=== PATIENT | female | born 1955 | race Caucasian/White ===

== ENCOUNTER 2017-06-04 19:52 | Emergency (ER) | payer SELFPAY ==
[2017-06-04 19:54] VITALS: BP 150/73; PULSE 75; RESP 16; TEMP 98.1; O2SAT 100
[2017-06-04 20:45] VITALS: RESP 16; O2SAT 99
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
[2017-06-04] MEDS ORDERED: ONDANSETRON HCL 4 MG/2 ML VIAL IV PUSH ONE ×2 (21:00→21:45)
[2017-06-04] MEDS ORDERED: MORPHINE SULFATE 4 MG/ML INJ IV PUSH ONE (21:00)
[2017-06-04 21:03] LABS: AUTOMATED NEUTROPHIL # 2.5 TH/MM3 (1.8-7.7); BASOPHIL % 0.4 % (0.0-2.0); EOSINOPHIL # 0.3 TH/MM3 (0-0.4); EOSINOPHIL % 4.8 % (0.0-4.0); HEMATOCRIT 41.6 % (35.0-46.0); HEMO FLAGS DIFF FINAL; LYMPH % 46.1 % (9.0-44.0); LYMPHOCYTE # 2.7 TH/MM3 (1.0-4.8); MEAN CELL VOLUME 92.9 FL (80.0-100.0); MEAN CORPUSCULAR HEMOGLOBIN 31.4 PG (27.0-34.0); MEAN CORPUSCULAR HGB CONC 33.8 % (32.0-36.0); MONO % 6.3 % (0.0-8.0); NEUT % 42.4 % (16.0-70.0); PLATELET COUNT 179 TH/MM3 (150-450); RED BLOOD COUNT 4.48 MIL/MM3 (4.00-5.30); RED CELL DISTRIBUTION WIDTH 13.2 % (11.6-17.2); WHITE BLOOD COUNT 5.9 TH/MM3 (4.0-11.0)
[2017-06-04 21:05] LABS: APTT (PATIENT) 25.9 SEC (24.3-30.1)
[2017-06-04 21:14] LABS: BICARBONATE 26.5 MEQ/L (21.0-32.0); POTASSIUM 4.3 MEQ/L (3.5-5.1)
[2017-06-04] MEDS ORDERED: LORazepam 1 MG TAB PO ONE (22:00)
[2017-06-04] MEDS ORDERED: LORazepam 2 MG/ML VIAL ONE (22:05)
--- NOTE | 2017-06-04 22:06 | RADRPT ---
EXAM DATE/TIME: 06/04/2017 21:14 [facility] COMPARISON: No previous studies available for comparison. INDICATIONS : Radiculopathy. MEDICAL HISTORY : Carcinoma, colon. SURGICAL HISTORY : Cholecystectomy. Hysterectomy. ENCOUNTER: Initial ACUITY: 1 month PAIN SCORE: 7/10 LOCATION: Bilateral lower back region. TECHNIQUE: Multiplanar multisequence MRI of the lumbar spine was performed without contrast. FINDINGS: The most caudal appearing lumbar vertebra is numbered as L5. VERTEBRAE: Homogeneous signal. Normal alignment. CONUS: Normal level and configuration. T12-L1: The thecal sac has a normal diameter. No evidence of disc bulge or protrusion. The neural foramina are patent bilaterally. L1-L2: The thecal sac has a normal diameter. No evidence of disc bulge or protrusion. The neural foramina are patent bilaterally. L2-L3: The thecal sac has a normal diameter. No evidence of disc bulge or protrusion. The neural foramina are patent bilaterally. L3-L4: Mild disc bulge without stenosis. L4-L5: Left-sided lateral disc protrusion and osteophytic ridging with left foraminal stenosis and impingeme nt on the left L4 nerve root. L5-S1: Broad-based disc bulge without stenosis. CONCLUSION: 1. At L4-5 on the left side there is a lateral disc protrusion and osteophytic ridging resulting in a left-sided foraminal stenosis and impingement on the left L4 nerve root. 2. Broad-based disc bulge at L3-4 and L5-S1 without significant stenosis. Kiel Downs MD on June 04, 2017 at 22:00 Board Certified Radiologist. This report was verified electronically.
--- NOTE | 2017-06-04 22:09 | RADRPT ---
EXAM DATE/TIME: 06/04/2017 21:49 [facility] COMPARISON: No previous studies available for comparison. INDICATIONS : Chest pain starting today MEDICAL HISTORY : None. SURGICAL HISTORY : None. ENCOUNTER: Initial ACUITY: 1 day PAIN SCORE: 10/10 LOCATION: Bilateral chest FINDINGS: A single view of the chest demonstrates the lungs to be symmetrically aerated without evidence of mas s, infiltrate or effusion. The cardiomediastinal contours are unremarkable. Osseous structures are intact. CONCLUSION: No acute disease. Kiel Downs MD on June 04, 2017 at 22:06 Board Certified Radiologist. This report was verified electronically.
--- NOTE | 2017-06-04 23:00 | RADRPT ---
EXAM DATE/TIME: 06/04/2017 22:50 [facility] COMPARISON: No previous studies available for comparison. INDICATIONS : Cephalgia. RADIATION DOSE: 31.89 CTDIvol (mGy) MEDICAL HISTORY : Cerebrovascular disease. Dementia. Carcinoma, colon. SURGICAL HISTORY : None. ENCOUNTER: Initial ACUITY: 3 months PAIN SCALE: 10/10 LOCATION: Bilateral cranial TECHNIQUE: Multiple contiguous axial images were obtained of the head. Using automated exposure control and adj ustment of the mA and/or kV according to patient size, radiation dose was kept as low as reasonably a chievable to obtain optimal diagnostic quality images. DICOM format image data is available electro nically for review and comparison. FINDINGS: CEREBRUM: The ventricles are normal for age. No evidence of midline shift, mass lesion, hemorrhage or acute in farction. No extra-axial fluid collections are seen. POSTERIOR FOSSA: The cerebellum and brainstem are intact. The 4th ventricle is midline. The cerebellopontine angle i s unremarkable. EXTRACRANIAL: The visualized portion of the orbits is intact. SKULL: The calvaria is intact. No evidence of skull fracture. CONCLUSION: 1. No acute intracranial abnormalities. Kiel Downs MD on June 04, 2017 at 22:56 Board Certified Radiologist. This report was verified electronically.
[2017-06-04 23:18] LABS: CREATINE KINASE 63 U/L (26-192)
[2017-06-05] MEDS ORDERED: FAMO1TAB37 PO (03:13)
[2017-06-05] MEDS ORDERED: IBUP-232 PO (03:13)
[2017-06-05] MEDS ORDERED: PERC5TAB12 PO (03:13)
--- NOTE | 2017-06-05 03:14 | PD ---
Data Data Last Documented VS Vital Signs Date Time Temp Pulse Resp B/P (MAP) Pulse Ox O2 Delivery O2 Flow Rate FiO2 06/05/17 03:52 06/04/17 20:45 16 99 Room Air 06/04/17 20:38 68 06/04/17 19:54 98.1 Orders Orders Complete Blood Count With Diff (06/04/17 20:38) Basic Metabolic Panel (Bmp) (06/04/17 20:38) Prothrombin Time / Inr (Pt) (06/04/17 20:38) Act Partial Throm Time (Ptt) (06/04/17 20:38) Urinalysis - C+S If Indicated (06/04/17 20:38) Magnesium (Mg) (06/04/17 20:38) Thyroid Stimulating Hormone (06/04/17 20:38) Ct Brain W/O Iv Contrast(Rout) (06/04/17 20:38) Iv Access Insert/Monitor (06/04/17 20:38) Ecg Monitoring (06/04/17 20:38) Oximetry (06/04/17 20:38) Morphine Inj (Morphine Inj) (06/04/17 21:00) Ondansetron Inj (Zofran Inj) (06/04/17 21:00) Mri L Spine W/O Contrast (06/04/17 ) Troponin I (06/04/17 21:38) Ckmb (Isoenzyme) Profile (06/04/17 21:38) Chest, Single Ap (06/04/17 ) Electrocardiogram (06/04/17 ) Ondansetron Inj (Zofran Inj) (06/04/17 21:45) Lorazepam (Ativan) (06/04/17 22:00) Lorazepam Inj (Ativan Inj) (06/04/17 22:05) Troponin I (06/05/17 02:32) Electrocardiogram (06/05/17 ) Ed Discharge Order (06/05/17 03:38) Labs Laboratory Tests Test 06/04/17 20:20 06/05/17 02:40 White Blood Count 5.9 TH/MM3 Red Blood Count 4.48 MIL/MM3 Hemoglobin 14.1 GM/DL Hematocrit 41.6 % Mean Corpuscular Volume 92.9 FL Mean Corpuscular Hemoglobin 31.4 PG Mean Corpuscular Hemoglobin Concent 33.8 % Red Cell Distribution Width 13.2 % Platelet Count 179 TH/MM3 Mean Platelet Volume 8.5 FL Neutrophils (%) (Auto) 42.4 % Lymphocytes (%) (Auto) 46.1 % Monocytes (%) (Auto) 6.3 % Eosinophils (%) (Auto) 4.8 % Basophils (%) (Auto) 0.4 % Neutrophils # (Auto) 2.5 TH/MM3 Lymphocytes # (Auto) 2.7 TH/MM3 Monocytes # (Auto) 0.4 TH/MM3 Eosinophils # (Auto) 0.3 TH/MM3 Basophils # (Auto) 0.0 TH/MM3 CBC Comment DIFF FINAL Differential Comment Prothrombin Time 10.0 SEC Prothromb Time International Ratio 1.0 RATIO Activated Partial Thromboplast Time 25.9 SEC Blood Urea Nitrogen 17 MG/DL Creatinine 1.02 MG/DL Random Glucose 89 MG/DL Calcium Level 9.0 MG/DL Magnesium Level 2.0 MG/DL Sodium Level 140 MEQ/L Potassium Level 4.3 MEQ/L Chloride Level 108 MEQ/L Carbon Dioxide Level 26.5 MEQ/L Anion Gap 6 MEQ/L Estimat Glomerular Filtration Rate 55 ML/MIN Total Creatine Kinase 63 U/L Troponin I LESS THAN 0.02 NG/ML LESS THAN 0.02 NG/ML Thyroid Stimulating Hormone 3rd Gen 6.720 uIU/ML MDM Supervised Visit with YANNICK: Yes Narrative Course MRI L4 foramen impingement , no cord involvement, pt is trop negative times 2 and EKG normal RATE 68 BPM NSR. will d/c with pain meds and [facility] follow info Diagnosis Primary Impression: Radiculopathy of lumbar region Additional Impression: Back pain Qualified Codes: M54.42 - Lumbago with sciatica, left side; G89.29 - Other chronic pain Referrals: [facility] Patient Instructions: Back Pain (ED), General Instructions Scripts Ibuprofen (Ibuprofen) 600 Mg Tab 600 MG PO Q6H Y for PAIN, #20 TAB 0 Refills Prov: Cuong Amos MD 06/05/17 Oxycodone-Acetaminophen (Percocet) 5-325 mg Tab 1 TAB PO Q6H Y for PAIN, #15 TAB 0 Refills Prov: Cuong Amos MD 06/05/17 Famotidine (Pepcid) 20 Mg Tab 20 MG PO BID, #30 TAB 0 Refills Prov: Cuong Amos MD 06/05/17 Cuong Amos MD Jun 05, 2017 03:14
--- NOTE | 2017-06-05 13:42 | EKG ---
Date Performed: 06/04/2017 Time Performed: 21:51:24 PTAGE: 61 years EKG: Sinus rhythm NORMAL ECG NO PREVIOUS TRACING DOCTOR: Mi Jacinto Interpretating Date/Time 06/05/2017 13:41:55
--- NOTE | 2017-06-05 14:03 | EKG ---
Date Performed: 06/05/2017 Time Performed: 02:38:38 PTAGE: 61 years EKG: Sinus rhythm NORMAL ECG Compared to prior tracing no significant change PREVIOUS TRACING DOCTOR: Mi Jacinto Interpretating Date/Time 06/05/2017 14:03:08
== END 2017-06-05 04:29 | disposition home or self-care (01) ==
LOC: NEPC 19:52
DX: M54.16 Radiculopathy, lumbar region (principal); R51 Headache; R20.0 Anesthesia of skin; M19.90 Unspecified osteoarthritis, unspecified site; E78.00 Pure hypercholesterolemia, unspecified; F03.90 Unspecified dementia, unspecified severity, without behavioral disturbance, psychotic disturbance, mood disturbance, and anxiety; Z88.5 Allergy status to narcotic agent; Z86.73 Personal history of transient ischemic attack (TIA), and cerebral infarction without residual deficits
CPT/HCPCS: 70450; 71010; 72148; 80048; 82550; 83735; 84443; 84484; 85025; 85610; 85730; 93005; 96374; 96375; 96376; 99285; J2060; J2270; J2405